=== PATIENT | female | born 1995 | race African-American/Black ===

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

== ENCOUNTER 2017-02-08 11:18 | Observation (INO) | payer MEDICAID ==
[~2017-02-08] VITALS: Ht 172.7 cm; Wt 86.2 kg
[~2017-02-08 11:18] MED LIST changes: +FLOV11 IH
== END 2017-02-08 12:40 | disposition home or self-care (01) ==
LOC: L&D 11:18
PROVIDERS: ADMIT Specialist; ATTEND Obstetrics & Gynecology
DX: O26.893 Other specified pregnancy related conditions, third trimester (principal); N89.8 Other specified noninflammatory disorders of vagina; Z3A.32 32 weeks gestation of pregnancy
CPT/HCPCS: 99281; G0378

== ENCOUNTER 2017-05-02 13:09 | Emergency (ER) | payer MEDICAID ==
[~2017-05-02] VITALS: Ht 172.7 cm; Wt 68.2 kg
[2017-05-02 13:26] VITALS: BP 131/74
== END 2017-05-02 19:32 | disposition left against medical advice (07) ==
LOC: ER 13:34
DX: Z53.21 Procedure and treatment not carried out due to patient leaving prior to being seen by health care provider (principal)

== ENCOUNTER 2018-06-06 07:24 | Emergency (ER) | payer MEDICAID ==
[~2018-06-06] VITALS: Ht 177.8 cm; Wt 61.0 kg
[2018-06-06 10:29] VITALS: BP 133/73
[2018-06-06] MEDS ORDERED: IBUPROFEN 600MG TABLET PO ONE (10:30)
== END 2018-06-06 10:30 | disposition home or self-care (01) ==
LOC: ER 07:24
DX: M79.662 Pain in left lower leg (principal); M25.562 Pain in left knee; V49.59XA Passenger injured in collision with other motor vehicles in traffic accident, initial encounter; Y93.89 Activity, other specified; Y92.410 Unspecified street and highway as the place of occurrence of the external cause
CPT/HCPCS: 81025; 99283

== ENCOUNTER 2019-02-10 08:30 | Emergency (ER) | payer MEDICAID ==
[~2019-02-10] VITALS: Ht 175.3 cm; Wt 75.0 kg
[2019-02-10] MEDS ORDERED: ACETAMINOPHEN 325MG TABLET PO PRN (10:30)
[2019-02-10 10:53] LABS: CLARITY URINE CLEAR (CLEAR); COLOR URINE YELLOW (YELLOW); KETONES URINE TRACE (NEGATIVE); LEUKOCYTE ESTERASE URINE 1+ (NEGATIVE); NITRITE URINE NEGATIVE (NEGATIVE); OCCULT BLOOD URINE 3+ (NEGATIVE); PH URINE 6.5 (4.5-8.0); PROTEIN URINE 1+ (NEGATIVE)
[2019-02-10 12:16] LABS: BASOPHILS % 0.5 % (0.0-2.0); EOSINOPHILS % 0.7 % (0.0-5.0); HEMATOCRIT. 39.5 % (36.0-48.0); HEMOGLOBIN. 13.5 g/dL (12.0-16.0); LYMPHOCYTES % 30.7 % (20.0-50.0); MEAN CORPUSCULAR HEMOGLOBIN 31.4 pg (28.0-32.0); MEAN CORPUSCULAR VOLUME 92.3 fL (81.0-99.0); MEAN PLATELET VOLUME 8.9 fl (7.4-10.4); MONOCYTES % 3.1 % (2.0-8.0); PLATELET 211 x1000/uL (130-400); RED BLOOD CELL COUNT 4.29 mill/uL (4.2-5.4); RED CELL DISTRIBUTION WIDTH 13.5 % (11.6-14.6)
[2019-02-10 12:20] LABS: CHLORIDE 108 mEq/L (98-107)
[2019-02-10 12:32] LABS: B-HCG QUANTITATIVE < 1 mIU/mL (<3)
[2019-02-10 14:10] VITALS: BP 122/66
== END 2019-02-10 14:10 | disposition home or self-care (01) ==
LOC: ER 08:30
DX: N93.8 Other specified abnormal uterine and vaginal bleeding (principal); N39.0 Urinary tract infection, site not specified; J45.909 Unspecified asthma, uncomplicated; Z79.899 Other long term (current) drug therapy
CPT/HCPCS: 36415; 76830; 76856; 81003; 81025; 84702; 86850; 86900; 99284